=== PATIENT | female | born 1975 | race Caucasian/White ===

== ENCOUNTER 2021-12-08 11:21 | Emergency (ER) | payer MEDICARE ==
[~2021-12-08] VITALS: Ht 149.9 cm; Wt 68.0 kg
[2021-12-08 14:49] LABS: URINE BILIRUBIN - DIPSTICK NEGATIVE (NEGATIVE); URINE BLOOD DIPSTICK TRACE-INTACT (NEGATIVE); URINE COLOR YELLOW; URINE GLUCOSE - DIPSTICK NEGATIVE (NEGATIVE); URINE KETONE >=80 mg/dL (NEGATIVE); URINE LEUK ESTERASE NEGATIVE (NEGATIVE); URINE PH 6.5 (4.5-8.0); URINE PROTEIN - DIPSTICK NEGATIVE (NEG-TRACE); URINE UROBILINOGEN - DIPSTICK 0.2 E.U./dL (0.2)
[2021-12-08 14:51] LABS: HEMATOCRIT 45.8 % (37.0-47.0); HEMOGLOBIN 14.8 g/dl (12.0-16.0); IMMATURE GRANULOCYTES 0.1 % (0.0-5.0); MEAN CELL VOLUME 89.3 fL CALC (80.0-100.0); MEAN CORPUSCULAR HGB 28.8 pG CALC (26.0-32.0); MEAN CORPUSCULAR HGB CONC 32.3 g/dL CAL (32.0-36.0); NEUT# 10.36 thou/uL (2.00-7.15); RED BLOOD COUNT 5.13 mill/uL (4.20-5.60); RED CELL DISTRI WIDTH 12.6 % (11.5-15.5)
[2021-12-08 14:53] LABS: URINE NITRITE - DIPSTICK NEGATIVE (Negative)
[2021-12-08 15:10] LABS: ALBUMIN 5.2 g/dL (3.2-5.0); ALKALINE PHOSPHATASE 77 u/l (38-126); ANION GAP 20 (6-22 (CALC)); BILIRUBIN, TOTAL 0.9 mg/dL (0.0-1.4); BUN 7 mg/dL (7-17); BUN/CREATININE RATIO 13 (12-20 (CALC)); CARBON DIOXIDE 24 mmol/l (22-30); CHLORIDE 100 mmol/l (95-108); CREATININE 0.6 mg/dL (0.5-1.0); GFR > 60 ML/MIN (>=60 (CALC)); GFR FOR AFR.AMER. > 60 ML/MIN (>=60 (CALC)); POTASSIUM 3.9 mmol/l (3.5-5.1); SGOT/AST 36 u/l (14-36); SODIUM 140 mmol/l (137-146); TOTAL PROTEIN 9.3 g/dL (6.3-8.2)
[2021-12-08] MEDS ORDERED: MIRALAX17 GM PO (16:43)
[2021-12-08] MEDS ORDERED: CITRATE OF MEGNESIA PO (16:43)
[2021-12-08] MEDS ORDERED: NO HOME MED (17:14)
[2021-12-08 17:19] VITALS: BP 153/81
== END 2021-12-08 17:19 | disposition home or self-care (01) ==
LOC: EDBD 11:21 → ED 11:21
PROVIDERS: Family Medicine
DX: D25.9 Leiomyoma of uterus, unspecified (principal); K59.00 Constipation, unspecified; I10 Essential (primary) hypertension; Z87.01 Personal history of pneumonia (recurrent)